=== PATIENT | female | born 1955 | race Caucasian/White ===

== ENCOUNTER 2019-07-27 11:18 | Emergency (ER) | payer BC ==
[2019-07-27 12:01] VITALS: BP 152/86
--- NOTE | 2019-07-27 13:06 | ER Document Report ---
ED GI/ - General Chief Complaint: Rash Stated Complaint: FLANK PAIN Time Seen by Provider: 07/27/19 12:44 Notes: HPI: 64-year-old female who presents today with some left flank pain around 9 to 10 days radiating to the left abdomen. No fevers or vomiting. No cough, shortness of breath, dysuria, or any other acute problems. Patient had an outpatient CT scan this past Saturday but is unsure the results. She states she started to develop a rash recently to the same area. ROS: See HPI All other review of systems reviewed and otherwise negative Reviewed vital signs and nursing note as charted by RN. PHYSICAL EXAM: CONSTITUTIONAL: Alert and oriented and responds appropriately to questions. Well-appearing; well-nourished EYES: Sclerae non-icteric ENT: Normal nose; no rhinorrhea; moist mucous membranes; pharynx without lesions noted NECK: Supple without meningismus; non-tender; no cervical lymphadenopathy, no masses CARD: Regular rate and rhythm; no murmurs; symmetric distal pulses RESP: Normal chest excursion without splinting or tachypnea; breath sounds clear and equal bilaterally ABD/GI: Normal bowel sounds; non-distended; soft, no focal tenderness to the abdomen itself BACK: The back appears normal and is non-tender to palpation EXT: Normal ROM in all joints; non-tender to palpation; no edema SKIN: Patient has a linear rash on the back radiogram to the phone very consistent with zoster NEURO: CN 2-12 intact; 5/5 bilateral upper and lower extremity strength with sensation intact to light touch PSYCH: The patient's mood and manner are appropriate. Grooming and personal hygiene are appropriate. - Related Data Allergies/Adverse Reactions: No Known Allergies Allergy (Verified 07/27/19 12:41) Past Medical History - Social History Smoking Status: Never Smoker Frequency of alcohol use: Occasional Drug Abuse: None Family History: Reviewed & Not Pertinent Patient has suicidal ideation: No Patient has homicidal ideation: No - Past Medical History Cardiac Medical History: Reports: Hx Hypertension Physical Exam - Vital signs Vitals: Temp Pulse Resp BP Pulse Ox 98.6 F 76 16 152/86 H 97 07/27/19 11:59 07/27/19 11:59 07/27/19 11:59 07/27/19 11:59 07/27/19 11:59 Course - Re-evaluation Re-evalutation: 07/27/19 13:06 Given the above history and physical, I do believe the patient most likely has a zoster-like rash. I do not believe any imaging or laboratory work is necessary. It follows a very particular dermatome map. - Vital Signs Vital signs: Temp Pulse Resp BP Pulse Ox 98.6 F 76 16 152/86 H 97 07/27/19 11:59 07/27/19 11:59 07/27/19 11:59 07/27/19 11:59 07/27/19 11:59 Discharge - Discharge Clinical Impression: Shingles Qualifiers: Herpes zoster complications: without complications Qualified Code(s): B02.9 - Zoster without complications Condition: Good Disposition: HOME, SELF-CARE Additional Instructions: Come back immediately for any increased pain, swelling, fevers, vomiting, or any other acute problems. Please take the medications as prescribed with breakthrough pain medications as needed. Prescriptions: Hydrocodone/Acetaminophen [[place] 5-325 mg Tablet] 1 tab PO Q8 #10 tablet Valacyclovir HCl [Valtrex 500 mg Tablet] 1,000 mg PO TID 7 Days #42 tablet
[2019-07-27 13:45] LABS: APPEARANCE,URINE CLEAR; BILIRUBIN,URINE NEGATIVE (NEGATIVE); COLOR,URINE YELLOW; GLUCOSE, URINE NEGATIVE (NEGATIVE); KETONES,URINE NEGATIVE (NEGATIVE); LEUKOCYTE ESTERASE,URINE NEGATIVE (NEGATIVE); NITRITE,URINE NEGATIVE (NEGATIVE); PROTEIN,URINE NEGATIVE (NEGATIVE); UROBILINOGEN,URINE NEGATIVE mg/dL (<2.0)
== END 2019-07-27 14:03 | disposition home or self-care (01) ==
LOC: ER 11:18
DX: B02.9 Zoster without complications (principal); I10 Essential (primary) hypertension
CPT/HCPCS: 81001